=== PATIENT | male | born 1995 | race African-American/Black ===

== ENCOUNTER 2017-12-07 15:30 | Emergency (ER) | payer OTHER ==
[2017-12-07 15:32] VITALS: BP 120/71; TEMP 98.1; O2SAT 98
[2017-12-07] MEDS ORDERED: KETOROLAC TROMETHAMINE 60 MG/2 ML (IM) VIAL IM ONE (16:00)
[2017-12-07] MEDS ORDERED: ORPHENADRINE INJ 60 MG/2 ML AMP IM ONE (16:00)
--- NOTE | 2017-12-07 16:03 | PD ---
HPI Chief Complaint: Back/ Neck Pain or Injury Time Seen by Provider: 15:51 Travel History International Travel<30 days: No Contact w/Intl Traveler<30days: No Traveled to known affect area: No History of Present Illness HPI 22-year-old male presents to emergency department for evaluation of acute onset mid back/flank pain approximately 2 hours ago. Patient states he woke up this morning had no back pain. He went to his house laid down and took a nap. When he woke up shortly after the pain began. He describes as aching and intermittently sharp. Denies any fever or chills. No nausea vomiting. No urinary symptoms. Patient denies any injury. Denies saddle paresthesia. No loss of bowel or bladder. No lower extremity weakness. It does not radiate anywhere. He has no other symptoms to report [facility] Past Medical History Medical History: Denies Significant Hx Diminished Hearing: No Tetanus Vaccination: Unknown Influenza Vaccination: No Past Surgical History Surgical History: No Previous Surgery Social History Alcohol Use: No Tobacco Use: Yes (1 pack per week) Substance Use: No Allergies-Medications (Allergen,Severity, Reaction): Coded Allergies: Iodinated Contrast- Oral and IV Dye (Verified Allergy, Unknown, 12/07/17) Reported Meds & Prescriptions Reported Meds & Active Scripts Active No Active Prescriptions or Reported Medications Review of Systems Except as stated in HPI: all other systems reviewed are Neg Physical Exam Narrative GENERAL: Well-nourished, well-developed male patient, ambulatory and in no acute distress. SKIN: Focused skin assessment warm/dry. HEAD: Normocephalic. EYES: No scleral icterus. No injection or drainage. NECK: Supple, trachea midline. No JVD or lymphadenopathy. CARDIOVASCULAR: Regular rate and rhythm without murmurs, gallops, or rubs. RESPIRATORY: Breath sounds equal bilaterally. No accessory muscle use. GASTROINTESTINAL: Abdomen soft, non-tender, nondistended. MUSCULOSKELETAL: No cyanosis, or edema. No spinal tenderness. Tenderness to palpation of the distal thoracic paraspinous musculature. No CVA tenderness BACK: Nontender without obvious deformity. No CVA tenderness. Data Data Last Documented VS Vital Signs Date Time Temp Pulse Resp B/P (MAP) Pulse Ox O2 Delivery O2 Flow Rate FiO2 12/07/17 15:32 98.1 76 14 120/71 (87) 98 Orders Orders Ketorolac Inj (Toradol Inj) (12/07/17 16:00) Orphenadrine Inj (Norflex Inj) (12/07/17 16:00) Urinalysis - C+S If Indicated (12/07/17 15:55) MDM Medical Decision Making Medical Screen Exam Complete: Yes Emergency Medical Condition: Yes Medical Record Reviewed: Yes Differential Diagnosis Muscle strain versus discogenic pain versus radiculopathy versus muscle spasm versus UTI versus renal calculi Narrative Course 22-year-old male presents to the emergency department for evaluation back pain. Patient appears without distress. Neuro exam is nonfocal. He has no spinal tenderness. Patient is treated for pain. Urinalysis is ordered. A she is treated for pain. Upon reassessment, pain has improved. He'll be discharged home with additional pain control. He is advised to follow-up with primary care provider and return immediately with any acute worsening symptoms. Diagnosis Primary Impression: Back strain Qualified Codes: S39.012A - Strain of muscle, fascia and tendon of lower back , initial encounter Referrals: Primary Care Physician Patient Instructions: Core Strengthening Exercises (ED), General Instructions Additional Instructions: Ice and/or warm moist heat may help to alleviate symptoms Follow-up with her primary care provider Return immediately with any acute worsening symptoms Med/Other Pt SpecificInfo: Prescription(s) given Scripts Ibuprofen (Ibuprofen) 600 Mg Tab 600 MG PO Q8HR Y for PAIN, #30 TAB 0 Refills Prov: Lynnette Pruitt 12/07/17 Methocarbamol (Robaxin) 500 Mg Tab 500 MG PO QID Y for MUSCLE SPASM, #20 TAB 0 Refills Prov: Lynnette Pruitt 12/07/17 Disposition: 01 DISCHARGE HOME Condition: Stable Lynnette Pruitt Dec 07, 2017 16:03
[2017-12-07] MEDS ORDERED: IBUP-232 PO (16:53)
[2017-12-07] MEDS ORDERED: ROBA500T PO (16:53)
[2017-12-07 17:11] LABS: BILIRUBIN, URINE NEG (NEG); BLOOD, URINE NEG (NEG); GLUCOSE,URINE NEG (NEG); KETONE, URINE NEG (NEG); NITRITE,URINE NEG (NEG); PH, URINE 6.5 (5.0-8.5); URINE COLOR YELLOW (YELLW/STRAW); URINE LEUKOCYTE ESTERASE NEG (NEG)
== END 2017-12-07 17:35 | disposition home or self-care (01) ==
LOC: NEPD 15:30
DX: S39.012A Strain of muscle, fascia and tendon of lower back, initial encounter (principal); X50.9XXA Other and unspecified overexertion or strenuous movements or postures, initial encounter; F17.200 Nicotine dependence, unspecified, uncomplicated
CPT/HCPCS: 81001; 96372; 99283; J1885; J2360